=== PATIENT | male | born 1955 | race Caucasian/White ===

== ENCOUNTER → 2017-01-22 | Day surgery (SDC) | payer BC ==
[~2017-01-22] MED LIST: LOSARTAN POTASS50 MG PO; MULTI VITAMIN1 EACH PO; ZESTRIL10 M1 PO
--- NOTE | ~2017-01-22 | OR ---
Unit #: [id number] #: [id number] Patient: RICHAR FUNG [id number] [address] [place], [place] [address] [id number] O MR#: [id number] NAME: RICHAR FUNG ROOM: Date of Procedure: 01/22/2017 Admission Date: 01/22/2017 Surgeon: Agapito Lowery M.D. : 1955 Attending Physician: Agapito Lowery M.D. Primary Care Physician: Óscar Tran M.D. OPERATIVE REPORT PREOPERATIVE DIAGNOSIS Colorectal cancer screening in an average-risk patient. PROCEDURE PERFORMED Colonoscopy up to cecum and terminal ileum with excellent preparation and good visualization. POSTOPERATIVE DIAGNOSES 1. The patient had small internal hemorrhoids. 2. Scant sigmoid diverticulosis. 3. Rest of the examination up to cecum was normal. The quality of the prep was excellent. No polyps were present or seen. RECOMMENDATIONS Repeat colonoscopy in 10 years. SEDATION USED MAC. DESCRIPTION OF PROCEDURE Following detailed explanation of potential risks and complications of a colonoscopy, namely perforation, bleeding, and complication related to sedation, the patient was brought to GI lab and laid in the left lateral decubitus position. A digital rectal examination was performed, which was normal. Lubricated tip of the Olympus video colonoscope was inserted through the anus and advanced under direct vision. The scope was advanced past rectosigmoid into descending colon. Scant small diverticula were noted in this area. The scope tip was then navigated all the way up to cecum with visualization of the ileocecal valve and the appendiceal orifice. Preparation was excellent with good visualization and photodocumentation was obtained. Last several inches of the terminal ileum were also visualized after intubation of the ileocecal valve and appeared normal. Successive segments of the colonic mucosa were examined upon withdrawal and appeared unremarkable. There being no polyps, mass lesions, or AVMs. Other than the scant diverticula, the patient was also noted to have small internal hemorrhoids at the anal verge. The scope was then withdrawn and the patient returned to the recovery area. He tolerated the procedure without any postprocedure complications. Dictated by... Agapito Lowery M.D. Unit #: [id number] #: [id number] Patient: RICHAR FUNG AK/maggy TD: 01/22/2017 11:55 JOB #: [id number] OPERATIVE REPORT Page 1 of 1 X Agapito Lowery MD PROCEDURE OPERATIVE NOTE
== END | disposition home or self-care (01) ==
LOC: COPS 01-02 09:30
DX: Z12.11 Encounter for screening for malignant neoplasm of colon (principal); K57.30 Diverticulosis of large intestine without perforation or abscess without bleeding; K64.8 Other hemorrhoids; Z85.46 Personal history of malignant neoplasm of prostate; Z79.899 Other long term (current) drug therapy
CPT/HCPCS: J2250